=== PATIENT | female | born 1945 | race Caucasian/White ===

== ENCOUNTER 2019-01-13 05:28 | Day surgery (SDC) ==
--- NOTE | 2019-01-07 17:11 | EKG Report ---
Test Performed on : 01/07/2019 4:51:46 PM Test Reason : PAT Blood Pressure : / mmHG Vent. Rate : 103 BPM Atrial Rate : 103 BPM P-R Int : 156 ms QRS Dur : 078 ms QT Int : 326 ms P-R-T Axes : 038 -41 063 degrees QTc Int : 427 ms Sinus tachycardia. Left axis deviation Inferior infarct , age undetermined Anterior infarct , age undetermined Abnormal ECG No previous ECGs available Confirmed by Angelo SCOTT, Ravinder Davila ([id number]) on 01/09/2019 11:59:18 AM
[2019-01-07 17:20] LABS: URINE SOURCE CLEAN CATCH
[2019-01-07 17:21] LABS: BASO# 0.04 X1000 (0.0-0.2); BASO% 0.6 % (0.0-0.8); EOS# 0.37 X1000 (0.0-0.7); EOS% 5.2 % (0.0-10.0); HEMATOCRIT 37.1 % (37.0-47.0); HEMOGLOBIN 11.6 g/dL (12.0-16.0); LYMPH# 1.35 X1000 (1.2-3.4); LYMPH% 19.1 % (20.5-51.1); MCH 29.3 PG (27-31); MCHC 31.3 g/dL (33-37); MCV 93.7 FL (81-99); MONO# 0.61 X1000 (0.11-0.59); MONO% 8.6 % (1.7-9.3); MPV 8.8 FL (7.4-10.4); NEUT# 4.69 X1000 (1.4-6.5); NEUT% 66.5 % (42.2-75.2); PLT 336 X1000 (130-400); RBC 3.96 XMIL (4.2-5.4); RDW 13.6 % (11.5-14.5); WBC 7.06 X1000 (4.8-10.8)
[2019-01-07 17:29] LABS: INR 0.88; PROTIME 12.6 Seconds (11.0-16.0); PTT 29.3 Seconds (22.3-41.8)
[2019-01-07 17:45] LABS: CALCIUM 8.9 mg/dL (8.8-10.2); CREATININE 1.2 mg/dL (0.5-0.9)
[2019-01-07 17:48] LABS: BILIRUBIN URINE NEGATIVE (NEGATIVE); BLOOD URINE NEGATIVE (NEGATIVE); COLOR YELLOW; GLUCOSE URINE NEGATIVE (NEGATIVE); KETONE URINE NEGATIVE (NEGATIVE); LEUKOCYTES URINE NEGATIVE (NEGATIVE); NITRITE URINE NEGATIVE (NEGATIVE); PH URINE 6.5; PROTEIN URINE NEGATIVE (NEGATIVE); SP GRAVITY URINE 1.018; TURBIDITY URINE HAZY (CLEAR); UROBILINOGEN URINE NORMAL (NORMAL)
[2019-01-07 17:51] LABS: UR EPITHELIAL CELLS <10 /HPF (<10); URINE BACTERIA NEGATIVE /HPF; URINE RBC <10 /HPF (<10); URINE WBC <10 /HPF (<10)
[2019-01-13] MEDS ORDERED: COLACE ONE (06:08)
[2019-01-13] MEDS ORDERED: PEPCID ONE (06:08)
[2019-01-13] MEDS ORDERED: REGLAN ONE (06:08)
[2019-01-13] MEDS ORDERED: KEFZOL 1 GM/D5W 2 GM/100 ML IVPB ONE (06:09)
[2019-01-13] MEDS ORDERED: CELEBREX ONE (06:09)
[2019-01-13] MEDS ORDERED: LR 1,000 ML ONE (06:09)
[2019-01-13] MEDS ORDERED: LYRICA ONE (06:09)
[2019-01-13] MEDS ORDERED: MARCAINE 0.25% PF/EPI 1:200,000 ONE (06:36)
[2019-01-13] MEDS ORDERED: VANCOMYCIN ONE (06:36)
[2019-01-13] MEDS ORDERED: SODIUM CHLORIDE 0.9% ONE (06:36)
[2019-01-13] MEDS ORDERED: DURAMORPH ONE (06:36)
[2019-01-13] MEDS ORDERED: CYKLOKAPRON 1,000 MG/NS 2,000 MG/200 ML IVPB ONE (06:36)
[2019-01-13] MEDS ORDERED: TORADOL ONE (06:36)
[2019-01-13] MEDS ORDERED: VERSED ONE (06:45)
[2019-01-13] MEDS ORDERED: DIPRIVAN 1% ONE (06:45)
[2019-01-13] MEDS ORDERED: ROBINUL ONE ×2 (06:45→08:43)
[2019-01-13] MEDS ORDERED: XYLOCAINE-MPF 2% ONE (06:45)
[2019-01-13] MEDS ORDERED: OFIRMEV 1000 MG/ISOTONIC SOLN 1,000 MG/100 ML BOTTLE ONE (07:16)
[2019-01-13] MEDS ORDERED: DECADRON ONE (07:16)
[2019-01-13] MEDS ORDERED: DILAUDID ONE (07:43)
[2019-01-13 07:55] LABS: URINE SOURCE CATH
[2019-01-13 08:08] LABS: BILIRUBIN URINE NEGATIVE (NEGATIVE); BLOOD URINE NEGATIVE (NEGATIVE); COLOR YELLOW; GLUCOSE URINE NEGATIVE (NEGATIVE); KETONE URINE NEGATIVE (NEGATIVE); LEUKOCYTES URINE NEGATIVE (NEGATIVE); NITRITE URINE NEGATIVE (NEGATIVE); PH URINE 5.5; PROTEIN URINE NEGATIVE (NEGATIVE); SP GRAVITY URINE 1.014; TURBIDITY URINE CLEAR (CLEAR); UROBILINOGEN URINE NORMAL (NORMAL)
[2019-01-13 08:10] LABS: UR EPITHELIAL CELLS <10 /HPF (<10); URINE BACTERIA NEGATIVE /HPF; URINE RBC <10 /HPF (<10); URINE WBC <10 /HPF (<10)
[2019-01-13] MEDS ORDERED: ZEMURON ONE (08:43)
[2019-01-13] MEDS ORDERED: NEOSTIGMINE ONE (08:43)
[2019-01-13] MEDS ORDERED: NS 1,000 ML ONE (08:53)
--- NOTE | 2019-01-13 09:39 | Diag Imaging Result Doc PS360 ---
KNEE 1-2 VIEWS-LEFT - 01/13/2019 INDICATION: L TKA TECHNIQUE: Two views COMPARISON: None FINDINGS: There has been left total knee arthroplasty. Alignment is anatomic. No hardware fracture or loosening. IMPRESSION: Negative exam. Electronically signed by Tu Caro 01/13/2019 9:37 AM
[2019-01-13] MEDS ORDERED: ZOFRAN IV PRN (09:45)
[2019-01-13] MEDS ORDERED: NS 1,000 ML IV SCH (09:45)
[2019-01-13] MEDS ORDERED: OXY IR PO PRN ×2 (09:45)
[2019-01-13] MEDS ORDERED: MORPHINE IV PRN ×3 (09:45)
[2019-01-13] MEDS ORDERED: ZOFRAN ODT PO PRN (09:45)
[2019-01-13] MEDS ORDERED: NARCAN ONE (11:37)
[2019-01-13] MEDS ORDERED: ZOFRAN ONE (12:00)
[2019-01-13] MEDS: NS 1,000 ML IV SCH ×2 (12:20→23:31)
--- NOTE | 2019-01-13 13:52 | OPERATIVE NOTE ---
PROCEDURE DATE: 01/13/2019 PREOPERATIVE DIAGNOSIS: Degenerative joint disease, left knee. POSTOPERATIVE DIAGNOSIS: Degenerative joint disease, left knee. PROCEDURE PERFORMED: Left total knee replacement. SURGEON: El Fontenot MD. SMALL ELECTRIC ENGINE TECHNICIAN: PEPE Mccallum. Mr. Joyner was necessary for proper retraction and manipulation of the knee during the case. ANESTHESIA: General. COMPLICATIONS: None. PROCEDURE IN DETAIL: A 73-year-old female presents for surgical left total knee replacement. Risks, benefits, and no guarantees were discussed, and she is willing to proceed. She was taken to the operating room, and satisfactory anesthesia obtained. The left knee was prepped and draped in usual sterile fashion. A time-out was taken to confirm operative site, procedure, and patient. The leg was wrapped with an Esmarch and tourniquet inflated to 350 mmHg. A midline incision was made over the front of the left knee followed by quad tendon sparing arthrotomy. The patella was everted, and resurfaced with freehand technique and subluxed laterally. The knee was flexed. An intramedullary hole made in the distal femur, and the distal femoral cutting block secured in 5 degrees of valgus. Distal femoral resection was made, and the femur sized to a Verivueuy EsLifeune size 5 block. The 4 in 1 block was secured and the anterior, posterior, and chamfer cuts were sequentially made. The PCL was retained and the knee flexed. A PCL retractor placed behind the tibia to protect the PCL and neurovascular bundle. The tibial cutting block was secured with extramedullary alignment and tibial resection made until the flexion extension gap was equal at 5 mm. The tibia was sized to a size 4 tibial tray. A trial reduction was performed with a size 4 rotating platform tibial tray, a size 5 cruciate retaining left femoral component and a 5 mm spacer. Good range of motion and stability was noted. The patella was sized to a 35 medialized dome patella. The drill holes were placed for the patellar implant in the femur. The narrow geometry of the femur was the best fit. The trial components were removed. The bony surfaces thoroughly irrigated with pulsatile lavage. Cement with a gram of vancomycin was then utilized to cement a size 4 rotating platform, attune tibial tray, a size 5 narrow left cruciate retaining femoral component, and a 35 medialized dome patella. Excess cement was removed with a Huslia elevator. While the cement cured, the joint capsule was injected with Exparel and a Hemovac drain placed. After curing the cement, a 5 mm rotating platform cruciate retaining poly was inserted into the tibial surface and tray and the knee reduced. Final range of motion was 0 to 130 degrees with midline patellar tracking and excellent soft tissue balance. The arthrotomy was copiously irrigated, and then closed over the drain with #1 Vicryl in the arthrotomy, 2-0 Vicryl in the subcutaneous and skin gil on the skin edges. Sterile dressings completed the closure. The patient was recovered from anesthesia and transferred to the recovery room in stable condition. No intraoperative complications were noted. Instrument count and sponge count was correct at the time of closure. cc: Josse Fontenot MD
[2019-01-13] MEDS: ULTRAM PO SCH ×3 (14:13→21:05)
[2019-01-13] MEDS: PERIDEX MT SCH (14:14)
[2019-01-13] MEDS: KEFZOL 2 GM/D5W 2 GM/50 ML IVPB IV SCH ×2 (14:53→23:31)
[2019-01-13] MEDS ORDERED: SODIUM CHLORIDE 0.9% INJ PRN (15:13)
[2019-01-13] MEDS ORDERED: PHENERGAN IV PRN (15:13)
--- NOTE | 2019-01-13 15:48 | ORTHOPAEDICS PROGRESS NOTE ---
DATE: 01/13/2019 POSTOP NOTE: Ms. Keita was seen status post a total knee replacement. She is complaining of some postop nausea. We will get her some Zofran for this. EXAMINATION: Her incision is clean and dry. She appears to be motor and sensory intact. DIAGNOSTICS: Postop x-rays look good in terms of the alignment. There are no immediate complications. ASSESSMENT AND PLAN: We will treat her postop nausea with Zofran as needed. We will plan on mobilizing her later and home when she is mobilizing. cc: Josse Fontenot MD
[2019-01-13] MEDS: TYLENOL PO SCH (16:49)
[2019-01-13] MEDS ORDERED: CRESTOR PO SCH (21:00)
[2019-01-13] MEDS ORDERED: NON-FORMULARY MED (Celecoxib [Celebrex] 200 MG) PO SCH (21:00)
[2019-01-13] MEDS ORDERED: PRINZIDE 20/12.5MG PO SCH (21:00)
[2019-01-14] MEDS: CELEBREX PO SCH ×2 (02:05→08:13)
[2019-01-14] MEDS: TYLENOL PO SCH ×3 (02:06→11:11)
[2019-01-14] MEDS: COLACE PO SCH ×2 (02:06→08:13)
[2019-01-14] MEDS: PERIDEX MT SCH ×2 (02:08→08:14)
[2019-01-14] MEDS: ULTRAM PO SCH ×2 (06:15→11:10)
[2019-01-14 06:58] LABS: HEMATOCRIT 33.7 % (37.0-47.0); HEMOGLOBIN 10.1 g/dL (12.0-16.0)
[2019-01-14 07:10] LABS: CREATININE 1.4 mg/dL (0.5-0.9); POTASSIUM 4.6 mmol/L (3.5-5.1)
--- NOTE | 2019-01-14 07:39 | ORTHOPAEDICS PROGRESS NOTE ---
DATE: 01/14/2019 Ms. Keita was seen today status post total knee replacement. She is afebrile with stable vital signs. Postop labs look good. Her incision is clean and dry. There are no signs of DVT, infection, or active bleeding. She is discharged home today after mobilizing with therapy. We have arranged for home therapy. She is to continue with all her home medicines. We placed her [place] as needed for pain, Phenergan as needed for nausea, aspirin once a day for DVT prophylaxis, and Bactrim for wound prophylaxis. We will see her back in roughly 12 days or sooner for any worsening signs or symptoms. cc: Josse Fontenot MD
[2019-01-14] MEDS ORDERED: ASPIRIN PO SCH (09:00)
[2019-01-14] MEDS ORDERED: LOFIBRA PO SCH (09:00)
[2019-01-14] MEDS ORDERED: PEPCID PO SCH (09:00)
[2019-01-14 11:15] VITALS: BP 115/61
[2019-01-14] MEDS: NS 1,000 ML IV SCH (12:49)
[2019-01-19] MEDS ORDERED: VITAMIN D PO SCH (14:00)
== END 2019-01-14 14:49 | disposition home health service (06) ==
LOC: 4N 05:28 → OR 05:28
PROVIDERS: ATTEND Orthopaedic Surgery Adult Reconstructive Orthopaedic Surgery
CPT/HCPCS: 73560; 80048; 81001; 85014; 85018; 85025; 85610; 85730; 86850; 86900; 86901; 88305; 88311; 93005; 93010; 94799; 97110; 97116; 97162; 97530; A9270; J0131; J0690; J1100; J1170; J1885; J2250; J2274; J2275; J2310; J2405; J2550; J3370; J7030; J7120; Q9974